=== PATIENT | female | born 1940 | race African-American/Black ===

== ENCOUNTER 2019-11-26 08:35 | Outpatient (CLI) | payer MEDICARE, BC ==
--- NOTE | 2019-11-26 12:15 | NM ---
Exam: Nuclear medicine parathyroid scan HISTORY: Endocrine disorder. Hyperparathyroidism. COMPARISON: None TECHNIQUE: Patient was ministered 27.5 mm of technetium 99 sestamibi intravenously. Planar and SPECT imaging is performed FINDINGS: Appropriate distribution of radiotracer on the immediate images. There is no significant ra diotracer retention in the thyroid bed suggestive parathyroid adenoma. IMPRESSION: No abnormal radiotracer retention in the thyroid bed on the planar and SPECT images to identify a par athyroid adenoma. If there is still concern, consider a soft tissue neck CT utilizing parathyroid adenoma protocol.
== END 2019-11-26 08:36 | disposition home or self-care (01) ==
LOC: NM 08:35
PROVIDERS: ATTEND Family Medicine
DX: E83.52 Hypercalcemia (principal); E34.9 Endocrine disorder, unspecified
CPT/HCPCS: 78072; A9500